=== PATIENT | female | born 1975 | race Caucasian/White ===

== ENCOUNTER 2024-10-05 20:23 | Inpatient (IN) | payer OTHER ==
[~2024-10-05] VITALS: Ht 167.6 cm; Wt 189.1 kg
[2024-10-05] MEDS: 0.9% SODIUM CHLORIDE 10 ML SYRINGE IVP PRN (21:42)
[2024-10-05] MEDS: PIPERACILLIN/TAZO 3.375 GM/D5W 50 ML IV ONE (21:43)
[2024-10-05 21:55] LABS: PLATELET COUNT (AUTO) 344 K/uL (150-450); RED BLOOD CELL COUNT(AUTO) 4.98 MIL/uL (4.00-5.20); RED CELL DISTRIBUTION WIDTH 13.7 % (11.5-14.5); WHITE BLOOD COUNT (AUTO) 10.6 K/uL (4.5-11.0)
[2024-10-05] MEDS ORDERED: ONDANSETRON HCL 4 MG/2 ML VIAL IVP PRN (22:00)
[2024-10-05 22:04] LABS: CALCIUM, TOTAL 8.9 mg/dL (8.8-10.5); CREATININE 0.65 mg/dL (0.60-1.30); GLOMERULAR FILTR. RATE CALC > 60 mL/min (>60); GLUCOSE,RANDOM 103 mg/dL (70-110); SODIUM SERUM 141 mmol/L (136-145); UREA NITROGEN, BLOOD 13 mg/dL (7-18)
[2024-10-05 22:12] LABS: ASPARTATE AMINOTRANSFERASE 23 U/L (15-37); TOTAL PROTEIN, SERUM 7.3 g/dL (6.4-8.2)
[2024-10-05 22:13] LABS: LACTIC ACID 1.0 mmol/L (0.4-2.0)
[2024-10-05] MEDS: VANCOMYCIN HCL 1 GM in DEXTROSE 5%-WATER 250 ML IV ONE (22:28)
[2024-10-05] MEDS: ACETAMINOPHEN 325 MG TABLET PO PRN (23:25)
[2024-10-05 23:30] VITALS: BP 123/62; PULSE 90; RESP 20; TEMP 98.4; O2SAT 100
[2024-10-05] MEDS: HEPARIN SODIUM,PORCINE 5,000 UNITS/ML VIAL SQ SCH (23:38)
[2024-10-06] MEDS ORDERED: SODIUM CHLORIDE 0.9% 500 ML IV ONE (02:58)
[2024-10-06] MEDS: VANCOMYCIN HCL 1 GM in DEXTROSE 5%-WATER 250 ML IV ONE (03:00)
[2024-10-06 04:38] VITALS: BP 116/55; PULSE 76; RESP 20; TEMP 98.2; O2SAT 98
[2024-10-06] MEDS: PIPERACILLIN/TAZO 3.375 GM/D5W 50 ML IV SCH (05:15)
[2024-10-06 07:30] LABS: APPEARANCE,URINE CLEAR (CLEAR); GLUCOSE, URINE (UA) NEGATIVE (NEGATIVE); LEUKOCYTE ESTERASE ,URINE NEGATIVE (NEGATIVE); NITRATE,URINE NEGATIVE (NEGATIVE); OCCULT BLOOD,URINE NEGATIVE (NEGATIVE); SPECIFIC GRAVITIY, URINE 1.009 (1.003-1.030)
[2024-10-06] MEDS: VANCOMYCIN HCL 1.25 GM in DEXTROSE 5%-WATER 250 ML IV SCH (07:51)
[2024-10-06] MEDS: FUROSEMIDE 20 MG/2 ML VIAL IVP SCH (07:52)
[2024-10-06] MEDS: DOCUSATE SODIUM 100 MG CAPSULE PO SCH (07:52)
[2024-10-06 08:00] VITALS: BP 108/53; PULSE 78; RESP 19; TEMP 98; O2SAT 99
[2024-10-06] MEDS ORDERED: VANCOMYCIN HCL 1.5 GM in DEXTROSE 5%-WATER 250 ML IV SCH (08:00)
[2024-10-06 08:20] LABS: PLATELET COUNT (AUTO) 323 K/uL (150-450); RED BLOOD CELL COUNT(AUTO) 5.07 MIL/uL (4.00-5.20); RED CELL DISTRIBUTION WIDTH 13.8 % (11.5-14.5); WHITE BLOOD COUNT (AUTO) 8.6 K/uL (4.5-11.0)
[2024-10-06 08:39] LABS: CALCIUM, TOTAL 8.7 mg/dL (8.8-10.5); CREATININE 0.73 mg/dL (0.60-1.30); GLOMERULAR FILTR. RATE CALC > 60 mL/min (>60); GLUCOSE,RANDOM 111 mg/dL (70-110); SODIUM SERUM 142 mmol/L (136-145); UREA NITROGEN, BLOOD 11 mg/dL (7-18)
[2024-10-06] MEDS: KETOROLAC TROMETHAMINE 15 MG/ML VIAL IVP PRN (13:00)
[2024-10-06 20:00] VITALS: BP 145/83; PULSE 87; RESP 18; TEMP 99.1; O2SAT 97
[2024-10-07 04:15] VITALS: BP 137/75; PULSE 80; RESP 20; TEMP 98.6; O2SAT 96
[2024-10-07 07:34] LABS: CALCIUM, TOTAL 8.7 mg/dL (8.8-10.5); CREATININE 0.74 mg/dL (0.60-1.30); GLOMERULAR FILTR. RATE CALC > 60 mL/min (>60); GLUCOSE,RANDOM 110 mg/dL (70-110); SODIUM SERUM 141 mmol/L (136-145); UREA NITROGEN, BLOOD 10 mg/dL (7-18)
[2024-10-07 08:32] VITALS: BP 133/78; PULSE 84; RESP 20; TEMP 98.4; O2SAT 98
[2024-10-07 20:19] VITALS: BP 103/58; PULSE 79; RESP 20; TEMP 98.6; O2SAT 95
[2024-10-08 05:25] VITALS: BP 112/82; PULSE 71; RESP 20; TEMP 98.1; O2SAT 94
[2024-10-08 07:10] LABS: CALCIUM, TOTAL 8.6 mg/dL (8.8-10.5); CREATININE 0.78 mg/dL (0.60-1.30); GLOMERULAR FILTR. RATE CALC > 60 mL/min (>60); GLUCOSE,RANDOM 110 mg/dL (70-110); SODIUM SERUM 140 mmol/L (136-145); UREA NITROGEN, BLOOD 13 mg/dL (7-18)
[2024-10-08 08:13] VITALS: BP 132/85; PULSE 76; RESP 18; TEMP 98.2; O2SAT 97
[2024-10-08 19:45] VITALS: BP 99/58; PULSE 84; RESP 20; TEMP 98.2; O2SAT 98
[2024-10-09 05:03] VITALS: BP 95/60; PULSE 79; RESP 18; TEMP 98.8; O2SAT 95
[2024-10-09 07:06] LABS: CALCIUM, TOTAL 8.8 mg/dL (8.8-10.5); CREATININE 0.87 mg/dL (0.60-1.30); GLOMERULAR FILTR. RATE CALC > 60 mL/min (>60); GLUCOSE,RANDOM 119 mg/dL (70-110); SODIUM SERUM 136 mmol/L (136-145); UREA NITROGEN, BLOOD 18 mg/dL (7-18)
[2024-10-09 08:44] VITALS: BP 97/54; PULSE 80; RESP 18; TEMP 99; O2SAT 97
[2024-10-09 09:31] VITALS: BP 112/70; PULSE 85
[2024-10-09] MEDS: FUROSEMIDE 20 MG TABLET PO SCH (10:42)
[2024-10-09] MEDS: SIMETHICONE 80 MG CHEWABLE TABLET CHEW PRN (17:14)
[2024-10-09 19:52] VITALS: BP 116/63; PULSE 82; RESP 20; TEMP 98.8; O2SAT 96
[2024-10-10 05:02] VITALS: BP 124/69; PULSE 82; RESP 18; TEMP 98.4; O2SAT 94
[2024-10-10 07:13] LABS: CALCIUM, TOTAL 8.9 mg/dL (8.8-10.5); CREATININE 0.89 mg/dL (0.60-1.30); GLOMERULAR FILTR. RATE CALC > 60 mL/min (>60); GLUCOSE,RANDOM 123 mg/dL (70-110); SODIUM SERUM 136 mmol/L (136-145); UREA NITROGEN, BLOOD 22 mg/dL (7-18)
[2024-10-10 07:26] VITALS: BP 116/78; PULSE 94; RESP 19; TEMP 98; O2SAT 96
[2024-10-10] MEDS ORDERED: BISACODYL 10 MG RECTAL RECTAL SUPPOSITORY PR PRN (12:30)
[2024-10-10] MEDS ORDERED: MAGNESIUM HYDROXIDE SUSPENSION 30 ML UDCUP PO PRN (12:30)
[2024-10-10 15:31] VITALS: BP 100/51; PULSE 64; RESP 18; TEMP 98.7; O2SAT 97
[2024-10-10 19:44] VITALS: BP 104/65; PULSE 92; RESP 18; TEMP 98.1; O2SAT 95
[2024-10-10] MEDS: VANCOMYCIN HCL 1.25 GM in DEXTROSE 5%-WATER 250 ML IV SCH (19:51)
[2024-10-11 04:28] VITALS: BP 113/70; PULSE 76; RESP 18; TEMP 97.9; O2SAT 93
[2024-10-11 07:14] LABS: CALCIUM, TOTAL 8.7 mg/dL (8.8-10.5); CREATININE 0.90 mg/dL (0.60-1.30); GLOMERULAR FILTR. RATE CALC > 60 mL/min (>60); GLUCOSE,RANDOM 102 mg/dL (70-110); SODIUM SERUM 140 mmol/L (136-145); UREA NITROGEN, BLOOD 23 mg/dL (7-18)
[2024-10-11 07:48] VITALS: BP 102/58; PULSE 75; RESP 18; TEMP 98.2; O2SAT 97
[2024-10-11] MEDS ORDERED: SODIUM CHLORIDE 0.9% 500 ML IV ONE (10:35)
[2024-10-11 20:35] VITALS: BP 99/50; PULSE 86; RESP 20; TEMP 99; O2SAT 94
[2024-10-12 04:01] VITALS: BP 128/73; PULSE 81; RESP 19; TEMP 97.9; O2SAT 95
[2024-10-12 06:50] LABS: CALCIUM, TOTAL 8.6 mg/dL (8.8-10.5); CREATININE 0.91 mg/dL (0.60-1.30); GLOMERULAR FILTR. RATE CALC > 60 mL/min (>60); GLUCOSE,RANDOM 111 mg/dL (70-110); SODIUM SERUM 139 mmol/L (136-145); UREA NITROGEN, BLOOD 18 mg/dL (7-18)
[2024-10-12 07:58] VITALS: BP 106/61; PULSE 86; RESP 20; TEMP 98.2; O2SAT 96
[2024-10-12] MEDS ORDERED: LIDOCAINE 1% 10 ML VIAL SQ ONE (18:00)
[2024-10-12] MEDS: LIDOCAINE 2% 6 ML JELLY TP ONE (19:02)
[2024-10-12 19:50] VITALS: BP 127/79; PULSE 81; RESP 20; TEMP 98.8; O2SAT 96
[2024-10-13 03:43] VITALS: BP 119/69; PULSE 81; RESP 20; TEMP 98.2; O2SAT 96
[2024-10-13 07:10] LABS: PLATELET COUNT (AUTO) 269 K/uL (150-450); RED BLOOD CELL COUNT(AUTO) 4.73 MIL/uL (4.00-5.20); RED CELL DISTRIBUTION WIDTH 13.5 % (11.5-14.5); WHITE BLOOD COUNT (AUTO) 8.1 K/uL (4.5-11.0)
[2024-10-13 07:19] LABS: CALCIUM, TOTAL 8.6 mg/dL (8.8-10.5); CREATININE 0.92 mg/dL (0.60-1.30); GLOMERULAR FILTR. RATE CALC > 60 mL/min (>60); GLUCOSE,RANDOM 107 mg/dL (70-110); SODIUM SERUM 139 mmol/L (136-145); UREA NITROGEN, BLOOD 19 mg/dL (7-18)
[2024-10-13 08:38] VITALS: BP 109/69; PULSE 79; RESP 18; TEMP 98.6; O2SAT 96
[2024-10-13] MEDS ORDERED: FURO20TA5 PO (09:37)
[2024-10-13 19:28] VITALS: BP 106/55; PULSE 76; RESP 20; TEMP 99.3; O2SAT 96
== END 2024-10-13 21:00 | DRG 602 ==
LOC: EMS 20:27 → EDH 21:51 → 6N 23:16
PROVIDERS: ADMIT Internal Medicine; ATTEND Internal Medicine
PROC: 05HD33Z Insertion of Infusion Device into Right Cephalic Vein, Percutaneous Approach (ICD-10-PCS; principal; 2024-10-09)
PROC: B54MZZA Ultrasonography of Right Upper Extremity Veins, Guidance (ICD-10-PCS; 2024-10-09)
DX: L03.116 Cellulitis of left lower limb (principal); J15.69 Pneumonia due to other Gram-negative bacteria; Z68.44 Body mass index [BMI] 60.0-69.9, adult; E66.01 Morbid (severe) obesity due to excess calories; I89.0 Lymphedema, not elsewhere classified; G43.909 Migraine, unspecified, not intractable, without status migrainosus; I87.2 Venous insufficiency (chronic) (peripheral); B96.89 Other specified bacterial agents as the cause of diseases classified elsewhere; I87.8 Other specified disorders of veins
CPT/HCPCS: 36245; 36569; 71045; 76937; 80048; 80076; 80202; 81003; 83605; 83735; 84145; 85025; 85610; 85730; 87040; 93005; 93306; 99285; J1644; J1885; J1940; J2543; J3370; J3490; J7040; J7060; 36415-L1; 36415-TC